=== PATIENT | male | born 1995 | race Caucasian/White ===

== ENCOUNTER 2018-08-16 20:03 | Emergency (ER) | payer SELFPAY ==
[2018-08-16 20:27] LABS: BASO # 0.1 (0.0-0.2); BASO % 0.4 % (0.0-2.0); EOS # 0.4 (0.0-0.7); EOS % 2.1 % (0-4.0); GRAN # 8.7 (1.4-6.5); GRAN % 49.4 % (42.2-75.2); HEMATOCRIT 45.8 % (42.0-52.0); HEMOGLOBIN 15.4 g/dl (13.5-18.0); LYMPH # 6.9 (1.2-3.4); MEAN CELL VOLUME 86 fl (80.0-100.0); MEAN CORPUSCULAR HEMOGLOBIN 29 pg (27.0-31.0); MEAN CORPUSCULAR HGB CONC 34 g/dl (33.0-37.0); MEAN PLATELET VOLUME 10.8 fl (7.4-10.4); MONO # 1.3 (0.1-0.6); MONO % 7.6 % (1.7-9.3); PLATELET COUNT 293 K/mm3 (130-400); RED BLOOD COUNT 5.33 M/mm3 (4.20-5.60); REDCELL DISTRIBUTION WIDTH-CV 12.7 % (11.5-14.5)
[2018-08-16 20:37] LABS: ALANINE AMINOTRANSFERASE 39 U/L (21-72); ALBUMIN 3.9 gm/dL (3.5-5.0); ALKALINE PHOSPHATASE 87 U/L (50-136); ANION GAP 13 mmol/L (7-16); AST,SGOT 54 U/L (15-37); BILIRUBIN,TOTAL 0.4 mg/dL (0.0-1.0); BLOOD UREA NITROGEN 13 mg/dL (9-20); CALCIUM 8.3 mg/dL (8.4-10.2); CARBON DIOXIDE 22 mmol/L (22-30); CHLORIDE 105 mmol/L (98-107); CREATININE, serum 0.63 mg/dL (0.66-1.25); GLUCOSE 115 mg/dL (74-106); POTASSIUM 3.9 mmol/L (3.4-5.0); SODIUM 141 mmol/L (137-145)
[2018-08-16 20:40] LABS: COLLECTION METHOD CATHETER
[2018-08-16 20:42] LABS: ALCOHOL(ethanol),MEDICAL < 10 mg/dL
[2018-08-16 20:50] VITALS: BP 182/116; PULSE 58
[2018-08-16 20:59] LABS: INR 1.4 (0.8-3.0); PROTHROMBIN TIME 15.4 SECONDS (9.7-12.8)
[2018-08-16 21:01] LABS: TRICYCLIC ANTIDEPRESS URINE NEGATIVE
[2018-08-16 21:04] LABS: GRANULAR CAST >12 /lpf; MUCOUS Present /lpf; PH 5 (5-8); SQUAMOUS EPITHELIAL 0-2 /hpf; URINE APPEARANCE Clear; URINE BACTERIA None Seen /hpf; URINE BILIRUBIN Negative (NEGATIVE); URINE BLOOD Negative (NEGATIVE); URINE COLOR Yellow; URINE GLUCOSE Negative (NEGATIVE); URINE KETONE Negative (NEGATIVE); URINE LEUKOCYTE ESTERASE Negative (NEGATIVE); URINE NITRATE Negative (NEGATIVE); URINE PROTEIN(semi-quant) 3+ (NEGATIVE); URINE UROBILINOGEN Negative (NEGATIVE)
== END 2018-08-16 21:15 | disposition short-term general hospital (02) ==
LOC: EDBD 20:03 → COL.ER 20:03
PROVIDERS: Emergency Medicine
DX: S01.83XA Puncture wound without foreign body of other part of head, initial encounter (principal); Z23 Encounter for immunization; W32.0XXA Accidental handgun discharge, initial encounter
CPT/HCPCS: J0330; J0690